=== PATIENT | male | born 1980 | race African-American/Black ===

== ENCOUNTER 2018-12-08 06:38 | Emergency (ER) | payer OTHER ==
--- NOTE | 2018-12-08 07:30 | ER ---
Nurse's Notes [facility] Name: Prakash Farias II Age: 38 yrs Sex: Male : 1980 Arrival Date: 12/08/2018 Time: 06:40 Bed 5 Private MD: Diagnosis: Injury of muscle, fascia and tendon at lower leg level;Essential (primary) hypertension Presentation: 12/08 07:00 Presenting complaint: Patient states: playing tennis yesterday and feels like he pulled tl2 his right calf muscle. Reports continuous pain in right calf, unable to bear weight. Transition of care: patient was not received from another setting of care. Onset of symptoms was December 07, 2018 at 18:50. Risk Assessment: Do you want to hurt yourself or someone else? Patient reports no desire to harm self or others. Initial Sepsis Screen: Does the patient meet any 2 criteria? No. Patient's initial sepsis screen is negative. Does the patient have a suspected source of infection? No. Patient's initial sepsis screen is negative. Care prior to arrival: None. 07:00 Method Of Arrival: Wheelchair tl2 07:00 Acuity: [place] 4 tl2 Triage Assessment: 07:02 General: Appears in no apparent distress. uncomfortable, Behavior is calm, cooperative, tl2 appropriate for age. Pain: Complains of pain in right calf. Historical: - Allergies: 07:02 No Known Allergies; tl2 - Home Meds: 07:02 None [Active]; tl2 - PMHx: 07:02 None; tl2 - PSHx: 07:02 None; tl2 - Immunization history:: Adult Immunizations up to date. - Social history:: Smoking status: Patient/guardian denies using tobacco. - Ebola Screening: : No symptoms or risks identified at this time. Screenin:03 Abuse screen: Denies threats or abuse. Nutritional screening: No deficits noted. tl2 Tuberculosis screening: No symptoms or risk factors identified. Fall Risk Gait- Impaired (20 pts.). Assessment: 07:15 General: Appears in no apparent distress. well groomed, well developed, well nourished, sg Behavior is calm, cooperative, appropriate for age. Pain: Complains of pain in right calf Quality of pain is described as aching, sore. Neuro: Level of Consciousness is awake, alert, obeys commands, Oriented to person, place, time, [employer] Equipment Operator are equal bilaterally Moves all extremities. Full function Gait is steady, Speech is normal. Cardiovascular: Capillary refill is brisk in bilateral fingers Patient's skin is warm and dry. Chest pain is denied. Respiratory: Airway is patent Respiratory effort is even, unlabored, Respiratory pattern is regular, symmetrical. GI: Abdomen is round non-distended, Reports normal bowel habits, tolerance of fluids, tolerance of food. : No signs and/or symptoms were reported regarding the genitourinary system. EENT: No signs and/or symptoms were reported regarding the EENT system. Derm: Skin is pink, warm \T\ dry. Musculoskeletal: Circulation, motion, and sensation intact. Range of motion: intact in all extremities, Swelling present in right calf and medial aspect of right calf. 07:22 Reassessment: pt mother reports that they have the appropriate sized crutches for the sg patient available at home. Vital Signs: 07:02 BP 176 / 104; Pulse 97; Resp 18; Temp 98.6; Pulse Ox 97% on R/A; Weight 131.54 kg; tl2 Height 6 ft. 2 in. (187.96 cm); Pain 6/10; 07:45 BP 145 / 95; Pulse 90; Resp 17; Pulse Ox 98% on R/A; sg 07:02 Body Mass Index 37.23 (131.54 kg, 187.96 cm) tl2 ED Course: 06:40 Patient arrived in ED. ds1 06:59 [facility] jr8 06:59 Yoan Arias MD is Attending Physician. jr8 07:01 Triage completed. tl2 07:02 Arm band placed on right wrist. tl2 07:03 Patient has correct armband on for positive identification. Bed in low position. Call tl2 light in reach. Side rails up X 1. Adult w/ patient. 07:14 Nikhil Tovar, RN is Primary Nurse. sg 07:15 No provider procedures requiring assistance completed. Patient did not have IV access sg during this emergency room visit. Alex wrap to right calf. 07:29 Ernie Juarez MD is Referral Physician. jr8 Administered Medications: No medications were administered Outcome: :29 Discharge ordered by . jr8 07:40 Discharged to home via wheelchair, with family. sg 07:40 Condition: good 07:40 Discharge instructions given to patient, family, Instructed on discharge instructions, follow up and referral plans. medication usage, safety practices, crutch walking, Demonstrated understanding of instructions, follow-up care, medications, crutch walking, Prescriptions given X 3. 07:45 Patient left the ED. sg Signatures: Nikhil Tovar RN RN Jing Diop ds1 Orville Castellanos PA PA jr8 Colleen Cueto RN RN tl2
--- NOTE | 2018-12-08 07:30 | EDPHYS ---
Physician Documentation [facility] Name: Prakash Farias II Age: 38 yrs Sex: Male : 1980 Arrival Date: 12/08/2018 Time: 06:40 Bed 5 Private MD: ED Physician Yoan Arias HPI: 12/08 07:11 This 38 yrs old Black Male presents to ER via Wheelchair with complaints of Leg Pain. jr8 07:11 The patient presents with pain, that is acute. The complaints affect the right calf. jr8 Context: The problem was sustained outdoors, at a sports field or court, resulted from playing sports, tennis , the patient can partially bear weight, the patient is not able to ambulate, Problem is a result from a previous injury: No. Onset: The symptoms/episode began/occurred acutely, yesterday. Modifying factors: The symptoms are alleviated by nothing. the symptoms are aggravated by movement, weight bearing. Associated signs and symptoms: The patient has no apparent associated signs or symptoms. Severity of symptoms: At their worst the symptoms were moderate, in the emergency department the symptoms are unchanged. The patient has not experienced similar symptoms in the past. The patient has not recently seen a physician. Patient stated that he was stepping off to hit ball while playing tennis. Was in running motion when he felt like someone hit him in the back of the right calf. Pain with decreased mobility since incident. Denies any other trauma . Historical: - Allergies: 07:02 No Known Allergies; tl2 - Home Meds: 07:02 None [Active]; tl2 - PMHx: 07:02 None; tl2 - PSHx: 07:02 None; tl2 - Immunization history:: Adult Immunizations up to date. - Social history:: Smoking status: Patient/guardian denies using tobacco. - Ebola Screening: : No symptoms or risks identified at this time. ROS: 07:11 Eyes: Negative for injury, pain, redness, and discharge, ENT: Negative for injury, jr8 pain, and discharge, Neck: Negative for injury, pain, and swelling, Cardiovascular: Negative for chest pain, palpitations, and edema, Respiratory: Negative for shortness of breath, cough, wheezing, and pleuritic chest pain, Abdomen/GI: Negative for abdominal pain, nausea, vomiting, diarrhea, and constipation, Back: Negative for injury and pain, Skin: Negative for injury, rash, and discoloration, Neuro: Negative for headache, weakness, numbness, tingling, and seizure. 07:11 MS/extremity: Positive for decreased range of motion, pain, swelling, tenderness, of the right calf. Exam: 07:11 Eyes: Pupils equal round and reactive to light, extra-ocular motions intact. Lids and jr8 lashes normal. Conjunctiva and sclera are non-icteric and not injected. Cornea within normal limits. Periorbital areas with no swelling, redness, or edema. ENT: Nares patent. No nasal discharge, no septal abnormalities noted. Tympanic membranes are normal and external auditory canals are clear. Oropharynx with no redness, swelling, or masses, exudates, or evidence of obstruction, uvula midline. Mucous membranes moist. Neck: Trachea midline, no thyromegaly or masses palpated, and no cervical lymphadenopathy. Supple, full range of motion without nuchal rigidity, or vertebral point tenderness. No Meningismus. Cardiovascular: Regular rate and rhythm with a normal S1 and S2. No gallops, murmurs, or rubs. Normal PMI, no JVD. No pulse deficits. Respiratory: Lungs have equal breath sounds bilaterally, clear to auscultation and percussion. No rales, rhonchi or wheezes noted. No increased work of breathing, no retractions or nasal flaring. Abdomen/GI: Soft, non-tender, with normal bowel sounds. No distension or tympany. No guarding or rebound. No evidence of tenderness throughout. Back: No spinal tenderness. No costovertebral tenderness. Full range of motion. Skin: Warm, dry with normal turgor. Normal color with no rashes, no lesions, and no evidence of cellulitis. Neuro: Awake and alert, GCS 15, oriented to person, place, time, and situation. Cranial nerves II-XII grossly intact. Motor strength 5/5 in all extremities. Sensory grossly intact. Cerebellar exam normal. Normal gait. 07:11 Musculoskeletal/extremity: Extremities: grossly normal except: noted in the right calf: Pain, swelling, tenderness to calf region. (-) Rodriguez test. No external trauma to skin, ROM: full active range of motion, full passive range of motion, limited active range of motion due to pain, in the right calf, limited passive range of motion due to pain, in the right calf, Pulses: noted to be 2+ in the right radial artery, right posterior tibial artery, right dorsalis pedis artery, left radial artery, left posterior tibial artery and left dorsalis pedis artery, Sensation intact. Vital Signs: 07:02 BP 176 / 104; Pulse 97; Resp 18; Temp 98.6; Pulse Ox 97% on R/A; Weight 131.54 kg; tl2 Height 6 ft. 2 in. (187.96 cm); Pain 6/10; 07:45 BP 145 / 95; Pulse 90; Resp 17; Pulse Ox 98% on R/A; sg 07:02 Body Mass Index 37.23 (131.54 kg, 187.96 cm) tl2 Procedures: 07:11 Splinting: Splint applied to right leg using alex wrap, applied by nurse. Examined by jr8 me, post splint application: neurovascular intact, 2+ distal pulses palpable, brisk capillary refill noted, Patient tolerated well. Crutch training provided to patient and/or family. Return demonstration given. MDM: 06:59 Patient medically screened. jr8 07:11 Data reviewed: vital signs, nurses notes, and as a result, I will discharge patient. jr8 Data interpreted: Pulse oximetry: on room air is 97 %. Interpretation: normal. Counseling: I had a detailed discussion with the patient and/or guardian regarding: the historical points, exam findings, and any diagnostic results supporting the discharge/admit diagnosis, the need for outpatient follow up, a orthopedic surgeon, to return to the emergency department if symptoms worsen or persist or if there are any questions or concerns that arise at home. 07:29 Counseling: I had a detailed discussion with the patient and/or guardian regarding: the jr8 presence of at least one elevated blood pressure reading (>120/80) during this emergency department visit. Special discussion: I have referred the patient to see his PCP for further evaluation of high blood pressure. 12/08 07:10 Order name: Alex Wrap; Complete Time: 07:13 jr8 12/08 07:10 Order name: Crutches; Complete Time: 07:13 jr8 Administered Medications: No medications were administered Disposition: 09:37 Co-signature as Attending Physician, Yoan Arias MD I agree with the assessment and sky plan of care. Disposition: 12/08/18 07:29 Discharged to Home. Impression: Injury of muscle, fascia and tendon at lower leg level, Essential (primary) hypertension. - Condition is Stable. - Discharge Instructions: Hypertension, Tendon Repair. - Prescriptions for Ibuprofen 800 mg Oral Tablet - take 1 tablet by ORAL route every 12 hours As needed take with food; 20 tablet. Tylenol- Codeine #3 300-30 mg Oral Tablet - take 2 tablets by ORAL route every 6 hours As needed; 20 tablet. amlodipine 5 mg Oral tablet - take 1 tablet by ORAL route once daily; 30 tablet. - Work release form, Medication Reconciliation Form, Thank You Letter, Antibiotic Education, Prescription Opioid Use form. - Follow up: Dr. Ernie Juarez; When: 2 - 3 days; Reason: Recheck today's complaints, Continuance of care, Re-evaluation by your physician. - Problem is new. - Symptoms have improved. Signatures: Nikhil Tovar RN RN sg Yoan Arias MD MD cha Roszak, Josh, PA PA jr8 Colleen Cueto RN RN tl2 Corrections: (The following items were deleted from the chart) 07:29 07:29 12/08/2018 07:29 Discharged to Home. Impression: Injury of muscle, fascia and jr8 tendon at lower leg level. Condition is Stable. Discharge Instructions: Tendon Repair. Prescriptions for Ibuprofen 800 mg Oral Tablet - take 1 tablet by ORAL route every 12 hours As needed take with food; 20 tablet, Tylenol-Codeine #3 300-30 mg Oral Tablet - take 2 tablets by ORAL route every 6 hours As needed; 20 tablet. and Forms are Medication Reconciliation Form, Thank You Letter, Antibiotic Education, Prescription Opioid Use. Follow up: Dr. Ernie Juarez; When: 2 - 3 days; Reason: Recheck today's complaints, Continuance of care, Re-evaluation by your physician. Problem is new. Symptoms have improved. jr8 07:45 07:29 12/08/2018 07:29 Discharged to Home. Impression: Injury of muscle, fascia and sg tendon at lower leg level; Essential (primary) hypertension. Condition is Stable. Discharge Instructions: Tendon Repair. Prescriptions for Ibuprofen 800 mg Oral Tablet - take 1 tablet by ORAL route every 12 hours As needed take with food; 20 tablet, Tylenol-Codeine #3 300-30 mg Oral Tablet - take 2 tablets by ORAL route every 6 hours As needed; 20 tablet. and Forms are Medication Reconciliation Form, Thank You Letter, Antibiotic Education, Prescription Opioid Use. Follow up: Dr. Ernie Juarez; When: 2 - 3 days; Reason: Recheck today's complaints, Continuance of care, Re-evaluation by your physician. Problem is new. Symptoms have improved. jr8
== END 2018-12-08 07:45 | disposition home or self-care (01) ==
LOC: ER 06:38
DX: S86.901A Unspecified injury of unspecified muscle(s) and tendon(s) at lower leg level, right leg, initial encounter (principal); X58.XXXA Exposure to other specified factors, initial encounter; Y93.73 Activity, racquet and hand sports; Y92.312 Tennis court as the place of occurrence of the external cause; I10 Essential (primary) hypertension
CPT/HCPCS: 99283